=== PATIENT | female | born 1985 | race Caucasian/White ===

== ENCOUNTER 2018-02-23 15:58 | Emergency (ER) | payer OTHER ==
[2018-02-23 16:29] VITALS: BP 114/78; PULSE 83; RESP 18; TEMP 98.4; O2SAT 99
--- NOTE | 2018-02-23 17:01 | C.PDOC ---
History Of Present Illness 32 year old female with no past medical history presents to the ER for bilateral breast pain. Patient states the pain started last Wednesday and it comes and goes. Patient states she has not taken anything for the pain. She denies radiation of the pain. She denies nipple discharge, fever, chills, nausea or vomiting. She states her last menstrual period was January 31. She denies breast tenderness prior to her menstrual periods. She states she is sexually active with her . She does not use contraception as she has had prior surgery for no more pregnancies. (Whitney Ledesma) Chief Complaint (Nursing): Breast Problem Past Medical History Family History: States: Unknown Family Hx - Social History Hx Alcohol Use: No Hx Substance Use: No - Immunization History Hx Tetanus Toxoid Vaccination: No Hx Influenza Vaccination: No Hx Pneumococcal Vaccination: No Vital Signs: Last Vital Signs Temp 98.4 F 02/23/18 16:25 Pulse 83 02/23/18 16:25 Resp 18 02/23/18 16:25 BP 114/78 02/23/18 16:25 Pulse Ox 99 02/23/18 17:31 Review Of Systems Constitutional: Negative for: Fever, Chills Cardiovascular: Negative for: Chest Pain, Palpitations Respiratory: Negative for: Shortness of Breath Gastrointestinal: Negative for: Nausea, Vomiting Musculoskeletal: Positive for: Other (bilateral breast pain ) Physical Exam - Physical Exam Appears: Well, Non-toxic, No Acute Distress Skin: Normal Color, Warm, No Rash, No Ecchymosis Head: Atraumatic, Normacephalic Eye(s): bilateral: Normal Inspection, PERRL, EOMI Oral Mucosa: Moist Lymphatic: No Axilla Node Tenderness Chest: Symmetrical, No Deformity, Tenderness (right anterior 5th rib costochondral tenderness ), No Ecchymosis, Other (Breast Exam: negative nipple dimpling; negative rash; negative nipple discharge; breast exam normal ) Respiratory: Normal Breath Sounds Gastrointestinal/Abdominal: Soft, No Tenderness ED Course And Treatment - Laboratory Results Urine POC: Negative O2 Sat by Pulse Oximetry: 99 Disposition Discussed With : Juan Pulido DO Doctor Will See Patient In The: ED - Disposition Disposition Time: 17:30 - Disposition Referrals: [facility] [Outside] [facility] [Outside] Disposition: HOME/ ROUTINE Condition: IMPROVED Additional Instructions: JOSÉ MIGUEL ORTEGA, thank you for letting us take care of you today. The emergency medical care you received today was directed at your acute symptoms. If you were prescribed any medication, please fill it and take as directed. It may take several days for your symptoms to resolve. Return to the Emergency Department if your symptoms worsen, do not improve, or if you have any other problems. Please contact your doctor or call one of the physicians/clinics you have been referred to that are listed on the Patient Visit Information form that is included in your discharge packet. Bring any paperwork you were given at discharge with you along with any medications you are taking to your follow up visit. Our treatment cannot replace ongoing medical care by a primary care provider outside of the emergency department. Thank you for allowing the [facility] team to be part of your care today. Follow up with our clinic in 3-5 days for re-evaluation and further management. Prescriptions: Ibuprofen [Motrin] 600 mg PO Q6 PRN #20 tab PRN Reason: Pain, Moderate (4-7) Instructions: Costochondritis Forms: [employer] (Bulgarian), General Discharge Instructions - Clinical Impression Clinical Impression: Costochondral pain, Acute costochondritis - PA / DANCE CRITIC / Resident Statement MD/DO has reviewed & agrees with the documentation as recorded. MD/DO has examined the patient and agrees with the treatment plan.
== END 2018-02-23 17:36 | disposition home or self-care (01) ==
LOC: C.ER 15:58
DX: M94.0 Chondrocostal junction syndrome [Tietze] (principal)

== ENCOUNTER 2018-06-05 13:08 | Emergency (ER) | payer OTHER ==
[2018-06-05 13:28] VITALS: RESP 18; O2SAT 100
--- NOTE | 2018-06-05 13:53 | C.PDOC ---
History Of Present Illness 32 year old female presents to the emergency department for possible . As per , patient has not had her period, with her LNMP being on 04-25-18. Patient reports that she experienced vaginal pain on Wednesday05-31-18, which has now gone away. She states that the pain was different from her normal menstrual periods. Patient states that she has no past medical history, but has a past surgical history of . She denies drinking alcohol, smoking, or having allergies to medications. She denies fever, chills, nausea, vomiting, and diarrhea. Chief Complaint (Nursing): Female Genitourinary History Per: Patient History/Exam Limitations: no limitations Onset/Duration Of Symptoms: Days Current Symptoms Are (Timing): Still Present Quality Of Discomfort: "Pain" Associated Symptoms: denies: Nausea, Vomiting, Diarrhea Additional History Per: Family () Last Menstral Period: 04-25-18 Past Medical History Reviewed: Historical Data, Nursing Documentation, Vital Signs Vital Signs: Last Vital Signs Temp 98.7 F 06/05/18 13:25 Pulse 86 06/05/18 13:25 Resp 18 06/05/18 13:25 BP 121/85 06/05/18 13:25 Pulse Ox 100 06/05/18 13:25 - Medical History PMH: No Chronic Diseases Surgical History: Family History: States: Unknown Family Hx - Social History Hx Alcohol Use: No Hx Substance Use: No - Immunization History Hx Tetanus Toxoid Vaccination: No Hx Influenza Vaccination: No Hx Pneumococcal Vaccination: No Review Of Systems Except As Marked, All Systems Reviewed And Found Negative. Constitutional: Negative for: Fever, Chills, Weakness Eyes: Negative for: Pain, Vision Change ENT: Negative for: Ear Pain, Nose Congestion Cardiovascular: Negative for: Chest Pain, Edema Respiratory: Negative for: Cough, SOB with Excertion Gastrointestinal: Negative for: Nausea, Vomiting, Abdominal Pain, Diarrhea, Constipation, Melena, Hematochezia, Hematemesis, Rectal Pain Genitourinary: Positive for: Pelvic Pain (previously 6d prior, none now). Negative for: Vaginal Discharge, Vaginal Bleeding Musculoskeletal: Negative for: Neck Pain, Shoulder Pain Neurological: Negative for: Weakness Psych: Negative for: Anxiety Physical Exam - Physical Exam Appears: Non-toxic, No Acute Distress Skin: Warm, Dry Head: Atraumatic, Normacephalic Eye(s): bilateral: Normal Inspection, PERRL, EOMI Nose: Normal Neck: Normal, Supple Chest: Symmetrical, No Tenderness Cardiovascular: Rhythm Regular, No Murmur Respiratory: No Rales, No Rhonchi, No Wheezing Gastrointestinal/Abdominal: Soft, No Tenderness, No Guarding, No Rebound Extremity: Normal ROM Neurological/Psych: Oriented x3, Normal Speech, Normal Cognition ED Course And Treatment - Laboratory Results Result Diagrams: 06/05/18 13:55 06/05/18 13:55 O2 Sat by Pulse Oximetry: 100 (RA) Pulse Ox Interpretation: Normal Medical Decision Making Medical Decision Makin yr old female p/w suprapubic abdominal pain 5d prior, none today. Non-ttp. No abnl vaginal d/c but pt notes that she has not had her period yet. No other complaints. No N/V. No dark or bloody stool. Pending imaging and labs. Plan: CMP CBC POC Urine Urinalysis US Transvag 1549 UA, POC preg negative labs largely unremarkable pending US 1654 US w/ ovarian cyst, <5cm, good flow. Pelvic exam done w/ Bhavya RN bedside w/ out CMT / adenexal tenderness or cervical d/c. No pain at this time Likely dysmenorrhea and cyst pain, will have pt f/u outpt. Pt agreeable and in NAD, clear for d/c home. Disposition - Disposition Disposition Time: 16:55 Condition: GOOD Instructions: Ovarian Cysts Forms: [employer] (Ugandan) - Clinical Impression Clinical Impression: Dysmenorrhea, Ovarian cyst - Scribe Statement The provider has reviewed the documentation as recorded by the Scribe (Linwood De La Vega) Provider Attestation: All medical record entries made by the Scribe were at my direction and personally dictated by me. I have reviewed the chart and agree that the record accurately reflects my personal performance of the history, physical exam, medical decision making, and the department course for this patient. I have also personally directed, reviewed, and agree with the discharge instructions and disposition.
[2018-06-05 14:01] LABS: BASO # 0.1 K/uL (0.0-0.2); EOS # 0.3 K/uL (0.0-0.7); EOS % 2.2 % (0.0-4.0); HEMOGLOBIN 10.8 g/dL (11.0-16.0); LYMPH # 2.6 K/uL (1.0-4.3); LYMPH % 22.5 % (20.0-40.0); MEAN CELL VOLUME 74.8 fL (81.0-99.0); MEAN CORPUSCULAR HEMOGLOBIN 25.1 pg (27.0-31.0); MEAN CORPUSCULAR HGB CONC 33.5 g/dL (33.0-37.0); MEAN PLATELET VOLUME 8.2 fL (7.2-11.7); MONO # 0.7 K/uL (0.0-0.8); MONO % 5.9 % (0.0-10.0); NEUT % 68.4 % (50.0-75.0); NRBC % 0.1 % (0.0-2.0); RBC 4.3 Mil/uL (3.80-5.20); RED CELL DISTRIBUTION WIDTH 15.5 % (11.5-14.5); WHITE BLOOD COUNT 11.6 K/uL (4.8-10.8)
[2018-06-05 14:16] LABS: ALB/GLOB RATIO 1.3 (1.0-2.1); ALBUMIN 4.1 g/dL (3.5-5.0); ALT/SGPT 33 U/L (9-52); AST/SGOT 22 U/L (14-36); BLOOD UREA NITROGEN 8 mg/dL (7-17); CALCIUM 9.2 mg/dl (8.6-10.4); GFR NON-AFRICAN AMERICAN > 60
[2018-06-05 14:34] LABS: URINE BILIRUBIN NEGATIVE (NEGATIVE); URINE BLOOD 1+ (NEGATIVE); URINE CLARITY Clear (Clear); URINE COLOR Straw (YELLOW); URINE GLUCOSE (UA) NORMAL (Normal); URINE LEUKOCYTE ESTERASE NEG Leu/uL (Negative); URINE PROTEIN NEGATIVE (NEGATIVE); URINE UROBILINOGEN NORMAL mg/dL (0.2-1.0)
[2018-06-05 14:38] LABS: SQUAMOUS EPITHIAL 1 /hpf (0-5)
[2018-06-05 15:50] VITALS: BP 110/76; PULSE 72; TEMP 98
--- NOTE | 2018-06-05 16:24 | US ---
Pelvic ultrasound HISTORY: Vaginal pain. COMPARISON: None. TECHNIQUE: Real-time sonography was performed through the pelvis utilizing transabdominal and transvaginal techniques. test not available. Uterus: 8.6 x 4.3 x 5.3 centimeters. Heterogeneous echotexture. Anteverted. Endometrium measures 8.2 millimeters, within normal limits. Cervix measures 3.2 centimeters. Trace fluid in the cervical canal. No free fluid in the pelvic cul-de-sac. Right ovary: 2.7 x 2.0 x 2.7 centimeters. Normal flow. Left ovary: 4.3 x 3.4 x 3.9 centimeters. Normal flow. Hypoechoic cyst measuring 3.3 x 2.6 x 3.1 centimeters. Impression: 3.3 centimeter left ovarian cyst. Please note status is unknown. Clinical correlation.
== END 2018-06-05 17:14 | disposition home or self-care (01) ==
LOC: C.ER 13:08
DX: N83.209 Unspecified ovarian cyst, unspecified side (principal); N94.6 Dysmenorrhea, unspecified